=== PATIENT | male | born 1955 | race Caucasian/White ===

== ENCOUNTER → 2017-04-16 | Outpatient (CLI) | payer OTHER ==
[~2017-04-16] MED LIST: ASP325 PO; ASPI-1471 PO; CLON-393 PO; DILT180C73 PO; FURO-45 PO; HYDR12.561 PO; INDO50CA92 PO; METO-1 PO; METO50TA19 PO; OMEP-125 PO; RANI-324 PO; TOP100 PO; [UNRECOGNIZED DRUG - CODE] PO
== END ==
LOC: LAB 13:48
PROVIDERS: ATTEND Surgery
DX: D17.23 Benign lipomatous neoplasm of skin and subcutaneous tissue of right leg (principal)
CPT/HCPCS: 88305

== ENCOUNTER → 2017-05-15 | Outpatient (CLI) | payer OTHER ==
[~2017-05-15] MED LIST changes: +AMOX1TAB9 PO; +IPRA15SP7 NS; +METH4TAB66 PO
== END ==
LOC: LAB 11:57
PROVIDERS: ATTEND Otolaryngology
DX: J30.9 Allergic rhinitis, unspecified (principal)
CPT/HCPCS: 36415; 86003

== ENCOUNTER → 2017-05-16 | Outpatient (CLI) | payer OTHER ==
[~2017-05-16] MED LIST changes: +BARIUM SULFATE 176 GM BTL PO ONE; +BARIUM SULFATE 340 GM POWD ONE
--- NOTE | 2017-05-16 14:44 | RADIOLOGY IMAGING REPORT ---
FACILITY: [facility] PATIENT NAME: Kade Lizarraga : 1955 MR: [id number] V: [id number] EXAM DATE: ORDERING PHYSICIAN: MARKUS GARCIA TECHNOLOGIST: Location: [facility] Patient: Kade Lizarraga : 1955 Visit/Account:[id number] Date of Sevice: 05/16/2017 ESOPHAGRAM Indication: suspected GERD, cough Comparison: None. Radiation dose: DAP 2196.46 uGym2; AK 54.8 mGy Findings: A biphasic esophagram was performed, with thin and thick barium. The esophagus demonstrat es normal peristalsis. The mucosa is smooth without evidence of ulcer mass or stricture. There is n o gastroesophageal reflux. IMPRESSION: Normal esophagram. Report Dictated By: Alec Andrade at 05/16/2017 2:39 PM Report E-Signed By: Alec Andrade at 05/16/2017 2:40 PM [id number]
== END ==
LOC: RAD 13:05
PROVIDERS: ATTEND Otolaryngology
DX: K21.9 Gastro-esophageal reflux disease without esophagitis (principal); R05 Cough
CPT/HCPCS: 74220

== ENCOUNTER → 2017-08-22 | Outpatient (CLI) | payer OTHER ==
[~2017-08-22] MED LIST changes: +AZEL137S NS; +AZEL23SP NS; -BARIUM SULFATE 176 GM BTL PO ONE; -BARIUM SULFATE 340 GM POWD ONE; +MONT10TA PO; -RANI-324 PO; +RANI-366 PO
== END ==
LOC: RESP 01:46
PROVIDERS: ATTEND Otolaryngology
DX: R05 Cough (principal)
CPT/HCPCS: 94060; 94726; 94729

== ENCOUNTER → 2017-09-24 | Outpatient (CLI) | payer OTHER ==
[2017-09-24 10:17] LABS: PLATELET COUNT, AUTOMATED 159 K/uL (150-450)
[2017-09-24 10:30] LABS: LDL CHOLESTEROL 109 mg/dl
== END ==
LOC: LAB 09:00
PROVIDERS: ATTEND Nurse Practitioner Psychiatric/Mental Health
DX: Z00.00 Encounter for general adult medical examination without abnormal findings (principal)
CPT/HCPCS: 36415; 82040; 82247; 82310; 82374; 82435; 82465; 82565; 82947; 83718; 84075; 84132; 84153; 84155; 84295; 84443; 84450; 84460; 84478; 84520; 84550; 85025

== ENCOUNTER 2018-05-09 15:42 | Emergency (ER) | payer OTHER ==
[~2018-05-09 15:42] MED LIST changes: -CEPH500T7 PO
--- NOTE | 2018-05-09 15:50 | ER Report ---
History and Physical Time Seen By MD: 15:50 HPI/ROS CHIEF COMPLAINT: Left lower extremity swelling, erythema HISTORY OF PRESENT ILLNESS: Patient is a 62-year-old male here with complaints of left lower extremity swelling, erythema with a negative duplex today. Patient reports significant pain, denies fevers, nausea, vomiting. Patient is able to bear weight and has some pain on palpation. REVIEW OF SYSTEMS: Constitutional: No fever, no chills. Eyes: No discharge. ENT: No sore throat. Cardiovascular: No chest pain, no palpitations. Respiratory: No cough, no shortness of breath. Gastrointestinal: No abdominal pain, no vomiting. Genitourinary: No hematuria. Musculoskeletal: Left lower extremity distal swelling, erythema Skin: Erythema of the distal left lower extremity anterior aspect of ankle and proximal Neurological: Neurovascular exam intact Allergies: Coded Allergies: Gabapentin (Verified Allergy, Mild, SWELLING, 06/20/10) Home Meds Active Scripts Cephalexin 500 Mg Tab (KEFLEX 500 MG TAB) 500 Mg Tablet, 500 MG PO Q6H for 7 Days, #28 TAB Prov:RUCHI ULRICH DO 05/09/18 Azelastine/Fluticasone (DYMISTA NASAL SPRAY) 23 Gm [facility].pump, 1 SPRAY NS BID fo r 30 Days, #1 BOTTLE Prov:MARKUS GARCIA JR, MD 07/11/17 Montelukast Sodium (SINGULAIR) 10 Mg Tablet, 1 TAB PO QHS for 90 Days, #90 TAB 3 Refills Prov:MARKUS GARCIA JR, MD 06/04/17 Reported Medications Aspirin (ASPIR 81) 81 Mg Tablet.dr, 81 MG PO QDAY, TAB 04/17/17 Indomethacin (INDOMETHACIN) 50 Mg Capsule, 50 MG PO 1-3XD PRN for PAIN, CAPSULE 04/17/17 Ranitidine Hcl (ZANTAC) 150 Mg Tablet, 300 MG PO QDAY, TAB 04/17/17 Diltiazem Hcl (CARTIA XT) 300 Mg Cap.er.24h, 300 MG PO QDAY 04/17/17 Metoprolol Succinate (METOPROLOL SUCCINATE) 50 Mg Tab.er.24h, 1 TAB PO QDAY, TAB 04/17/17 Furosemide (FUROSEMIDE) 20 Mg Tablet, 1 TAB PO QDAY, TAB 04/17/17 Omeprazole (OMEPRAZOLE) 20 Mg Capsule.dr, 1 CAP PO QDAY, CAP 04/17/17 Hx Smoking: No Smoking Status: Never Smoker Constitutional Vital Sign - Last 24 Hours 05/09/18 05/09/18 05/09/18 15:58 16:00 16:12 Temp 97.9 Pulse 68 64 Resp 16 B/P (MAP) 137/83 137/93 (108) Pulse Ox 90 90 O2 Delivery Room Air Physical Exam General Appearance: The patient is alert, has no immediate need for airway protection and no signs of toxicity. No acute distress Eyes: Pupils equal and round no pallor or injection. ENT, Mouth: Mucous membranes are moist. Respiratory: There are no retractions, lungs are clear to auscultation. Cardiovascular: Regular rate and rhythm. Gastrointestinal: Abdomen is soft and non tender, no masses, bowel sounds normal. Neurological: No focal neurological deficits Skin: Erythema of the distal left lower extremity Musculoskeletal: Edema and tenderness on examination of the left lower extremity DIFFERENTIAL DIAGNOSIS: After history and physical exam differential diagnosis was considered for cellulitis, erysipelas, abscess, osteomyelitis Medical Decision Making Data Points Result Diagram: 05/09/18 1604 05/09/18 1604 Laboratory Hematology Test 05/09/18 16:04 Red Blood Count 4.98 M/uL (4.00-5.60) Mean Corpuscular Volume 87.6 fL (80.0-96.0) Mean Corpuscular Hemoglobin 30.0 pg (26.0-33.0) Mean Corpuscular Hemoglobin Concent 34.3 g/dL (32.0-36.0) Red Cell Distribution Width 14.4 % (11.5-14.5) Mean Platelet Volume 8.0 fL (7.2-11.1) Neutrophils (%) (Auto) 64.0 % (39.4-72.5) Lymphocytes (%) (Auto) 28.8 % (17.6-49.6) Monocytes (%) (Auto) 5.0 % (4.1-12.4) Eosinophils (%) (Auto) 1.8 % (0.4-6.7) Basophils (%) (Auto) 0.4 % (0.3-1.4) Nucleated RBC Relative Count (auto) 0.0 /100WBC Neutrophils # (Auto) 6.7 K/uL (2.0-7.4) Lymphocytes # (Auto) 3.0 K/uL (1.3-3.6) Monocytes # (Auto) 0.5 K/uL (0.3-1.0) Eosinophils # (Auto) 0.2 K/uL (0.0-0.5) Basophils # (Auto) 0.0 K/uL (0.0-0.1) Nucleated RBC Absolute Count (auto) 0.01 K/uL Sodium Level 139 mmol/L (137-145) Potassium Level 4.4 mmol/L (3.5-5.0) Chloride Level 111 mmol/L (98-107) Carbon Dioxide Level 23 mmol/L (22-30) Blood Urea Nitrogen 10 mg/dl (9-21) Creatinine 0.70 mg/dl (0.66-1.25) Glomerular Filtration Rate Calc > 60.0 Random Glucose 116 mg/dl (75-110) Calcium Level 10.0 mg/dl (8.4-10.2) Total Bilirubin 0.4 mg/dl (0.2-1.3) Aspartate Amino Transf (AST/SGOT) 20 U/L (0-35) Alanine Aminotransferase (ALT/SGPT) 17 U/L (0-56) Alkaline Phosphatase 68 U/L (0-126) B-Type Natriuretic Peptide < 5 pg/ml (0-100) Total Protein 8.4 g/dl (6.3-8.2) Albumin 4.6 g/dl (3.5-5.0) Chemistry Test 05/09/18 16:04 White Blood Count 10.5 k/uL (4.5-11.0) Red Blood Count 4.98 M/uL (4.00-5.60) Hemoglobin 15.0 g/dL (14.0-18.0) Hematocrit 43.6 % (42.0-52.0) Mean Corpuscular Volume 87.6 fL (80.0-96.0) Mean Corpuscular Hemoglobin 30.0 pg (26.0-33.0) Mean Corpuscular Hemoglobin Concent 34.3 g/dL (32.0-36.0) Red Cell Distribution Width 14.4 % (11.5-14.5) Platelet Count 446 K/uL (150-450) Mean Platelet Volume 8.0 fL (7.2-11.1) Neutrophils (%) (Auto) 64.0 % (39.4-72.5) Lymphocytes (%) (Auto) 28.8 % (17.6-49.6) Monocytes (%) (Auto) 5.0 % (4.1-12.4) Eosinophils (%) (Auto) 1.8 % (0.4-6.7) Basophils (%) (Auto) 0.4 % (0.3-1.4) Nucleated RBC Relative Count (auto) 0.0 /100WBC Neutrophils # (Auto) 6.7 K/uL (2.0-7.4) Lymphocytes # (Auto) 3.0 K/uL (1.3-3.6) Monocytes # (Auto) 0.5 K/uL (0.3-1.0) Eosinophils # (Auto) 0.2 K/uL (0.0-0.5) Basophils # (Auto) 0.0 K/uL (0.0-0.1) Nucleated RBC Absolute Count (auto) 0.01 K/uL Glomerular Filtration Rate Calc > 60.0 Calcium Level 10.0 mg/dl (8.4-10.2) Total Bilirubin 0.4 mg/dl (0.2-1.3) Aspartate Amino Transf (AST/SGOT) 20 U/L (0-35) Alanine Aminotransferase (ALT/SGPT) 17 U/L (0-56) Alkaline Phosphatase 68 U/L (0-126) B-Type Natriuretic Peptide < 5 pg/ml (0-100) Total Protein 8.4 g/dl (6.3-8.2) Albumin 4.6 g/dl (3.5-5.0) ED Course/Re-evaluation ED Course Patient is a 62-year-old male here with complaints of erythema and edema of the left lower extremity with a negative duplex completed in the outpatient setting. Patient does have a history of CHF with bilateral edema left more than right. Patient was given IV dose of Lasix, ceftriaxone for infectious coverage. Patient was given a prescription for Keflex for treatment of superficial skin infection. Close follow-up recommended with PCP, return precautions provided Decision to Disposition Date: May 09, 2018 Decision to Disposition Time: 17:01 Depart Departure Latest Vital Signs Vital Signs Date Time Temp Pulse Resp B/P (MAP) Pulse Ox O2 Delivery O2 Flow Rate FiO2 05/09/18 16:12 64 90 05/09/18 16:00 137/93 (108) 05/09/18 15:58 97.9 16 Room Air Impression: Primary Impression: Skin infection Additional Impression: Edema Condition: Improved Disposition: HOME OR SELF-CARE New Scripts Cephalexin 500 Mg Tab (KEFLEX 500 MG TAB) 500 Mg Tablet 500 MG PO Q6H for 7 Days, #28 TAB Prov: RUCHI ULRICH DO 05/09/18 Patient Instructions: Cellulitis (ED) Additional Instructions: Please take Keflex one tablet 4 times daily for 7 days for treatment of suspected early superficial skin infection. Please follow-up with your family doctor in the next 24-48 hours for reevaluation and care. Please return immediately if you develop increased swelling, fevers, worsening rash. Problem Qualifiers RUCHI ULRICH DO May 09, 2018 15:50
[2018-05-09 16:00] VITALS: BP 137/93
[2018-05-09] MEDS ORDERED: FUROSEMIDE 40 MG/4 ML VIAL IVP ONE (16:15)
[2018-05-09 16:17] LABS: PLATELET COUNT, AUTOMATED 446 K/uL (150-450)
[2018-05-09] MEDS ORDERED: CEPH500T7 PO (17:01)
[2018-05-09] MEDS ORDERED: LIDOCAINE 1% MDV 200 MG/20 ML INJ ONE (17:15)
[2018-05-09] MEDS ORDERED: cefTRIAXone 1 GM VIAL IM ONE (17:15)
[2018-05-09] MEDS ORDERED: ceFAZolin 1 GM VIAL ONE (17:34)
== END 2018-05-09 17:49 | disposition home or self-care (01) ==
LOC: ER 16:06
DX: L08.9 Local infection of the skin and subcutaneous tissue, unspecified (principal)
CPT/HCPCS: 83880; 85025; 96372; 96374; 99284; J0696; J1940; 82040; 82247; 82310; 82374; 82435; 82565; 82947; 84075; 84132; 84155; 84295; 84450; 84460; 84520

== ENCOUNTER → 2018-05-09 | Outpatient (CLI) | payer OTHER ==
[~2018-05-09] MED LIST changes: +CEPH500T7 PO; +INDO-23 PO; -INDO50CA92 PO
--- NOTE | 2018-05-09 14:22 | RADIOLOGY IMAGING REPORT ---
FACILITY: [facility] [place] PATIENT NAME: Kade Lizarraga : 1955 MR: [id number] V: [id number] EXAM DATE: ORDERING PHYSICIAN: PALOMA GÓMEZ TECHNOLOGIST: Location: [facility] [place] Patient: Kade Lizarraga : 1955 Visit/Account:[id number] Date of Sevice: 05/09/2018 US VENOUS LOWER EXT LT ADDITIONAL PERTINENT HISTORY: Swelling and redness involving the left lower extremity. COMPARISON STUDIES: None. FINDINGS: Grayscale compression, duplex and color Doppler interrogation of the left lower extremity deep veins from common femoral vein to proximal calf was performed. The greater saphenous vein in the ipsilatera l proximal thigh was evaluated using similar technique. Left lower extremity: Common femoral vein: Negative. Femoral vein: Negative. Deep femoral vein: Negative. Popliteal vein: Negative. Visualized deep calf veins Negative. Greater saphenous vein in the proximal thigh: Negative. Popliteal fossa: negative Surrounding soft tissues: Enlarged, reactive appearing lymph nodes within the left groin. Otherwise n egative IMPRESSION: 1. No evidence of deep venous thrombosis involving the left lower extremity. Report Dictated By: Bandar Mcconnell MD at 05/09/2018 2:16 PM Report E-Signed By: Bandar Mcconnell MD at 05/09/2018 2:17 PM WSN:[id number]
== END ==
LOC: US 12:39
PROVIDERS: ATTEND Nurse Practitioner Psychiatric/Mental Health
DX: M79.89 Other specified soft tissue disorders (principal)